=== PATIENT | female | born 1985 | race Caucasian/White ===

== ENCOUNTER 2017-02-15 19:29 | Emergency (ER) | payer BC ==
[2017-02-15 19:33] VITALS: RESP 18
[2017-02-15 21:14] LABS: % IMMATURE GRANULYOCYTES 0.4 % (0.0-1.1); ABSOLUTE IMMATURE GRANULOCYTES 0.02 10^3/uL (0.00-0.10); ADD DIFF? NO; ADD MORPH? NO; ADD SCAN? NO; ATYPICAL LYMPHOCYTE FLAG 20 (0-99); FRAGMENT RBC FLAG 0 (0-99); HEMATOCRIT 43.8 % (38.0-47.0); HEMOGLOBIN 14.2 g/dL (12.6-16.3); LEFT SHIFT FLG 0 (0-99); LIPEMIA HEMOLYSIS FLAG 80 (0-99); MEAN CELL HEMOGLOBIN 28.7 pg (27.9-34.1); MEAN CELL HEMOGLOBIN CONCENTR. 32.4 g/dL (32.4-36.7); MEAN CELL VOLUME 88.5 fL (81.5-99.8); MEAN PLATELET VOLUME 9.3 fL (8.7-11.7); PLATELET CLUMPS FLAG 0 (0-99); PLATELET COUNT 346 10^3/uL (150-400); RED BLOOD CELL COUNT 4.95 10^6/uL (4.18-5.33); RED CELL DISTRIBUTION WIDTH 14.6 % (11.5-15.2)
[2017-02-15 21:23] LABS: ANION GAP 15 mEq/L (8-16); CALCIUM 9.5 mg/dL (8.5-10.4); CARBON DIOXIDE 25 mEq/l (22-31); CHLORIDE 110 mEq/L (97-110); CREATININE 0.9 mg/dL (0.6-1.0); GLOMERULAR FILTRATION RATE > 60; GLUCOSE 89 mg/dL (70-100); POTASSIUM 4.4 mEq/L (3.5-5.2); SODIUM 150 mEq/L (134-144)
--- NOTE | 2017-02-15 21:24 | EDPHY ---
Mental Health General Previous Psychiatric History: previous inpatient psychiatric admission, previous suicide attempt, substance abuse Smoking Status: Current some day smoker Time Patient Placed on M1 Hold: 17:48 Time Medically Cleared for Psychiatric Evaluation: 22:00 Time of Transfer of Care: 00:[address] To [address]:: Leo Narrative: CHIEF COMPLAINT: M1 hold HISTORY OF PRESENT ILLNESS: 32-year-old female presents emergency department by police on an M1 hold after a friend called police to do a welfare check. This friend reports that he was on the phone with her and she reported she was suicidal and had attempted suicide a couple different times over the weekend. Patient has been drinking today and he was worried for her safety. Arrival to the emergency department the patient is not cooperative initially. She denies suicidal ideations, homicidal ideations, auditory or visual hallucinations. She denies drug use, reports drinking alcohol today. She states she was hospitalized for depression 3 years ago started on Celexa that she continues to take daily. She reports multiple suicidal attempts at age 14. REVIEW OF SYSTEMS: A comprehensive 10 point review of systems is otherwise negative aside from elements mentioned in the history of present illness. Physical Exam Gen: Alert and Oriented, tearful HEENT: PERRL, moist mucous membranes NECK: no meningismus CV: tachycardic rate and regular rhythm PULM: CTAB, no wheezes ABDOMEN: soft, non tender to palpation, BS present BACK: No CVA tenderness NEURO: Neurologically grossly intact EXTREMITIES: normal appearing SKIN: no rash or break in skin on exposed skin PSYCH: Denies suicidal ideation, homicidal ideation, auditory or visual hallucinations. (Jodie Bellamy) Medical Decision Makin-patient with blood alcohol level of 298 at 9:00 p.m. Care is assumed by Dr. Bao Bailey at the end of my shift pending sobriety and mental health evaluation. (Jodie Bellamy) 0005 care assumed by me from JOSE Bellamy pending sobriety and mental health evaluation. 0640 Pt s/o to Dr Dutton pending mental health evaluation. No issues during my care overnight. (German Bailey) 715: Not suicidal, after psychiatric evaluation recommendation of trimmer operator and Dr. López is to vacated the hold which was done. Stable for discharge. (Terrance Dutton) - Objective Vital Signs: Initial Vital Signs Temperature (C) 36.9 C 02/15/17 19:31 Heart Rate 110 H 02/15/17 19:31 Respiratory Rate 18 02/15/17 19:31 Blood Pressure 148/108 H 02/15/17 19:31 O2 Sat (%) 97 02/15/17 19:31 O2 Delivery Mode Room Air Allergies/Adverse Reactions: No Known Allergies Allergy (Verified 07/22/16 19:18) Home Medications: Medication Instructions Recorded Hydrocodone/APAP 5/325 [[place] 1 - 2 tab PO Q4H PRN #10 tab 09/03/16 5/325] Ondansetron HCl [Zofran] 4 mg PO Q4-6PRN PRN #10 tablet 09/03/16 Laboratory Results: Laboratory Results 02/15/17 20:50 02/15/17 20:50 02/15/17 02/15/17 02/15/17 20:50 20:50 20:50 WBC 4.87 10^3/uL 10^3/uL (3.80-9.50) RBC 4.95 10^6/uL 10^6/uL (4.18-5.33) Hgb 14.2 g/dL g/dL (12.6-16.3) Hct 43.8 % % (38.0-47.0) MCV 88.5 fL fL (81.5-99.8) MCH 28.7 pg pg (27.9-34.1) MCHC 32.4 g/dL g/dL (32.4-36.7) RDW 14.6 % % (11.5-15.2) Plt Count 346 10^3/uL 10^3/uL (150-400) MPV 9.3 fL fL (8.7-11.7) Neut % (Auto) 45.7 % % (39.3-74.2) Lymph % (Auto) 47.6 % H % (15.0-45.0) Casey % (Auto) 4.9 % % (4.5-13.0) Eos % (Auto) 0.6 % % (0.6-7.6) Baso % (Auto) 0.8 % % (0.3-1.7) Nucleat RBC Rel Count 0.0 % % (0.0-0.2) Absolute Neuts (auto) 2.22 10^3/uL 10^3/uL (1.70-6.50) Absolute Lymphs (auto) 2.32 10^3/uL 10^3/uL (1.00-3.00) Absolute Monos (auto) 0.24 10^3/uL L 10^3/uL (0.30-0.80) Absolute Eos (auto) 0.03 10^3/uL 10^3/uL (0.03-0.40) Absolute Basos (auto) 0.04 10^3/uL 10^3/uL (0.02-0.10) Absolute Nucleated RBC 0.00 10^3/uL 10^3/uL (0-0.01) Immature Gran % 0.4 % % (0.0-1.1) Immature Gran # 0.02 10^3/uL 10^3/uL (0.00-0.10) Sodium 150 mEq/L H mEq/L (134-144) Potassium 4.4 mEq/L mEq/L (3.5-5.2) Chloride 110 mEq/L mEq/L (97-110) Carbon Dioxide 25 mEq/l mEq/l (22-31) Anion Gap 15 mEq/L mEq/L (8-16) BUN 9 mg/dL mg/dL (7-23) Creatinine 0.9 mg/dL mg/dL (0.6-1.0) Estimated GFR > 60 Glucose 89 mg/dL mg/dL (70-100) Calcium 9.5 mg/dL mg/dL (8.5-10.4) Beta HCG, Qual NEGATIVE Urine Opiates Screen Urine Barbiturates Ur Phencyclidine Scrn Ur Amphetamine Screen U Benzodiazepines Scrn Urine Cocaine Screen U Marijuana (THC) Screen Ethyl Alcohol 296 mg/dL H mg/dL (0-10) 02/15/17 20:45 WBC RBC Hgb Hct MCV MCH MCHC RDW Plt Count MPV Neut % (Auto) Lymph % (Auto) Casey % (Auto) Eos % (Auto) Baso % (Auto) Nucleat RBC Rel Count Absolute Neuts (auto) Absolute Lymphs (auto) Absolute Monos (auto) Absolute Eos (auto) Absolute Basos (auto) Absolute Nucleated RBC Immature Gran % Immature Gran # Sodium Potassium Chloride Carbon Dioxide Anion Gap BUN Creatinine Estimated GFR Glucose Calcium Beta HCG, Qual Urine Opiates Screen NEGATIVE (NEGATIVE) Urine Barbiturates NEGATIVE (NEGATIVE) Ur Phencyclidine Scrn NEGATIVE (NEGATIVE) Ur Amphetamine Screen NEGATIVE (NEGATIVE) U Benzodiazepines Scrn NEGATIVE (NEGATIVE) Urine Cocaine Screen NEGATIVE (NEGATIVE) U Marijuana (THC) Screen NEGATIVE (NEGATIVE) Ethyl Alcohol Departure - Departure Disposition: Home, Routine, Self-Care Clinical Impression: Alcohol intoxication Qualifiers: Complication of substance-induced condition: uncomplicated Qualified Code(s): F10.120 - Alcohol abuse with intoxication, uncomplicated Depression Qualifiers: Depression Type: major depressive disorder Major depression recurrence: recurrent Active/Remission status: remission status unspecified Qualified Code(s ): F33.9 - Major depressive disorder, recurrent, unspecified Condition: Good Instructions: Depression (ED), Alcohol Intoxication (ED) Referrals: SOMEBODY,[facility] NOT SURE [Other] - As per Instructions Cassandra Benjamin MD [[facility] [place]] - As per Instructions
[2017-02-15 21:54] LABS: ETHANOL SERUM 296 mg/dL (0-10)
[2017-02-15 23:04] VITALS: BP 119/81; PULSE 103; TEMP 98.2; O2SAT 95
== END 2017-02-16 07:41 | disposition home or self-care (01) ==
DX: F33.9 Major depressive disorder, recurrent, unspecified (principal); F10.120 Alcohol abuse with intoxication, uncomplicated; F17.200 Nicotine dependence, unspecified, uncomplicated
CPT/HCPCS: 80305; G0480

== ENCOUNTER 2019-04-21 19:42 | Emergency (ER) | payer OTHER, BC | END 2019-04-21 20:32 | disposition home or self-care (01) ==